=== PATIENT | male | born 1955 | race Caucasian/White ===

== ENCOUNTER → 2021-01-13 | Outpatient (CLI) | payer OTHER ==
--- NOTE | 2021-01-13 12:08 | MR ---
EXAMINATION TYPE: MR cervical spine wo con DATE OF EXAM: 01/13/2021 COMPARISON: None HISTORY: Neck pain and back pain for many years. Pt c/o headaches and bilateral pain/weakness in arms /fingers. TECHNIQUE: Multiplanar, multisequence images of the cervical spine were acquired. C2-C3: Degenerative disc disease and facet arthropathy but no disc herniation, canal stenosis, or for aminal encroachment. C3-C4: Degenerative disc disease with mild central disc bulging. Facet arthropathy and uncovertebral joint hypertrophy with mild right foraminal encroachment but no canal stenosis. C4-C5: Degenerative disc disease with broad-based central disc bulging but no canal stenosis. Facet a rthropathy. No foraminal encroachment. C5-C6: Severe degenerative disc disease with broad-based disc bulging and facet arthropathy. Mild francisco javier ateral foraminal encroachment with uncovertebral joint hypertrophy. C6-C7: Severe degenerative disc disease with discogenic marrow changes and broad-based disc bulging. There is facet arthropathy and mild bilateral foraminal encroachment. C7-T1: Degenerative disc disease but no disc herniation, canal stenosis, or foraminal encroachment. Multiple thyroid nodules incidentally noted. Cervical segments are intact. There is normal alignment. Cervical spinal cord is of normal signal. Cerebellar tonsils low-lying in position. IMPRESSION: 1. Multilevel moderate to severe degenerative disc disease with multilevel disc bulging as discussed above. Findings result in multilevel mild foraminal encroachment. 2. Multiple thyroid nodules. 3. Low-lying cerebellar tonsils extending just below the level of the foramen magnum.
== END | disposition home or self-care (01) ==
LOC: RADMRIMAIN 08:56
PROVIDERS: ATTEND Orthopaedic Surgery
DX: M50.33 Other cervical disc degeneration, cervicothoracic region (principal); M50.223 Other cervical disc displacement at C6-C7 level; M47.812 Spondylosis without myelopathy or radiculopathy, cervical region; M99.71 Connective tissue and disc stenosis of intervertebral foramina of cervical region; E04.2 Nontoxic multinodular goiter
CPT/HCPCS: 72141

== ENCOUNTER → 2021-02-03 | Outpatient (CLI) | payer OTHER ==
[2021-02-03 23:15] LABS: Basophils # (A) 0.02 X 10*3/uL (0.00-0.10); Basophils % (A) 0.3 %; Eosinophils # (A) 0.14 X 10*3/uL (0.04-0.35); HCT 43.9 % (39.6-50.0); HGB 14.4 g/dL (13.0-17.0); Lymphocytes # (A) 1.79 X 10*3/uL (0.90-5.00); Lymphocytes % (A) 25.8 %; MCH 31.5 pg (27.0-32.0); MCHC 32.8 g/dL (32.0-37.0); MCV 96.1 fL (80.0-97.0); Mean Platelet Volume 11.1 fL (9.5-12.2); Monocytes # (A) 0.63 X 10*3/uL (0.20-1.00); Monocytes % (A) 9.1 %; Neutrophils # (A) 4.34 X 10*3/uL (1.80-7.70); Neutrophils % (A) 62.5 %; Platelet Count 267 X 10*3/uL (140-440); RBC 4.57 X 10*6/uL (4.40-5.60); RDW 13.2 % (11.5-14.5); WBC 6.94 X 10*3/uL (4.50-10.00)
[2021-02-04 00:52] LABS: Erythrocyte Sedimentation Rate 11 mm/Hr (0-20)
[2021-02-04 04:03] LABS: African American GFR (CKD) 67.3 (60.0-200.0); Albumin 4.6 g/dL (3.80-4.90); Anion Gap 6.4 mmol/L (4.00-12.00); BUN/Creat Ratio 16.15 Ratio (12.00-20.00); C Reactive Protein 0.7 mg/dL (0.0-0.8); Calcium 9.3 mg/dL (8.7-10.3); Carbon Dioxide 25.6 mmol/L (21.6-31.8); Globulin 2.3 g/dL (1.6-3.3); Non-African American GFR(CKD) 58.1 (60.0-200.0); Potassium 4.8 mmol/L (3.5-5.5); Total Bilirubin 0.4 mg/dL (0.3-1.2); Total Protein 6.9 g/dL (6.2-8.2)
== END | disposition home or self-care (01) ==
LOC: LABWHC1 15:01
PROVIDERS: ATTEND Orthopaedic Surgery
DX: M54.2 Cervicalgia (principal); M25.50 Pain in unspecified joint
CPT/HCPCS: 36415; 80053; 82306; 85025; 85652; 86140

== ENCOUNTER → 2023-03-29 | Outpatient (CLI) | payer MEDICARE, OTHER ==
--- NOTE | 2023-03-29 10:08 | XR ---
INDICATION: Patient age:Male; 68 years old; Reason for study: Z18.10; [facility]. COMPARISON: None. TECHNIQUE: 3 views the orbits. FINDINGS: Radiographic evaluation of the orbits fail to demonstrate evidence of an orbital fracture. There is n o radiopaque foreign body identified. Mild opacification of the right maxillary sinus. IMPRESSION: No radiographic evidence of radiopaque foreign body.
--- NOTE | 2023-03-30 10:32 | MR ---
EXAMINATION TYPE: MR Prostate wo/w con DATE OF EXAM: 03/29/2023 12:46 PM COMPARISON: None. CLINICAL INDICATION:Male, 68 years old with history of R97.20 elevated psa; TECHNIQUE: Multi-planar, multi-sequence imaging of the pelvis is performed prior to and following the uncomplicated administration of bolus intravenous gadolinium. CONTRAST: 9.5 Gadavist Interpretive Criteria: PI-RADS v2.1 SERUM PSA: 8.13 on 01/03/2023. 8.8 on 02/26/2023 SURGICAL PATHOLOGY: No data available. FINDINGS: Prostatic dimensions: 4.9 x 4.5 x 3.3 cm. "Bullet" Volume:45.51 (PSA density=0.18 ng/mL/mL) CENTRAL GLAND (Central and Transition Zones/CZ+TZ): Multiple bilateral, heterogenous appearing hypertrophic stromal nodules, without suspicious lesion. M edian lobe hypertrophy with protrusion into the base of the bladder. (PI-RADS 2) PERIPHERAL ZONE (PZ): High DWI signal along the left lateral peripheral zone predominate posterior and posterior lateral as pect in the mid gland and apex with associated low T2 and low ADC signal measuring 17 x 13 x 14 mm. T his extends along the capsule, no obvious extracapsular extension. (PI-RADS 5) SEMINAL VESICLES (SV): Symmetric and unremarkable. PERIPROSTATIC TISSUES: Unremarkable. LYMPH NODES: No enlarged pelvic lymph node. REMAINING PELVIS: Bladder wall demonstrates a few bladder diverticula with trabeculations. Likely secondary to chronic bilateral obstruction. No abnormal free or organized intrapelvic fluid collection. No pathologic bowel dilation or mural thickening. Scattered colonic diverticula. Fat-containing inguinal hernia on the left. OSSEOUS STRUCTURES: No suspicious osseous abnormality. IMPRESSION: 1. PI-RADS 5 lesion in the left peripheral zone mid gland and apex measuring up to 17 mm 2. No suspicious osseous lesion. No lymphadenopathy. No evidence of prostate adenocarcinoma involving the periprostatic tissues.
== END | disposition home or self-care (01) ==
LOC: RADMRIMAIN 08:56
PROVIDERS: ATTEND Urology
DX: R97.20 Elevated prostate specific antigen [PSA] (principal); Z18.10 Retained metal fragments, unspecified
CPT/HCPCS: 70030; 72197; A9585